=== PATIENT | female | born 1965 | race Caucasian/White ===

== ENCOUNTER 2020-03-28 23:34 | Emergency (ER) | payer SELFPAY ==
[~2020-03-28] VITALS: Ht 157.5 cm; Wt 54.0 kg
[2020-03-29 01:49] VITALS: BP 98/58
== END 2020-03-29 01:49 | disposition home or self-care (01) ==
LOC: ER 23:34
DX: F41.9 Anxiety disorder, unspecified (principal)
CPT/HCPCS: 99283